=== PATIENT | male | born 1990 | race Caucasian/White ===

== ENCOUNTER 2021-01-17 08:07 | Emergency (ER) | payer OTHER, SELFPAY ==
--- NOTE | 2021-01-17 08:11 | ED.ABDPAIN ---
HPI - Abdominal Pain General Chief Complaint: Nausea/Vomiting/Diarrhea Stated Complaint: nausea and diarrhea Time Seen by Provider: 01/17/21 08:11 Source: patient and RN notes reviewed History of Present Illness HPI narrative: Patient is a 30-year-old male who presents the urgent care with complaints of diffuse abdominal pains, nausea, vomiting and diarrhea. Patient states that it started on Friday after he went to [facility] and ate a steak. Patient states that his entire family were having issues of nausea and vomiting which resolved within a few hours of going out to eat. Patient states he has been unable to keep anything down since Friday. Patient states he attempted to take Tylenol once which came right back up. Patient states that he has had 6-7 bouts of diarrhea this morning and one episode of vomiting. Denies of any blood in the stool or vomit. Denies of any known fevers. Patient appears to be uncomfortable but no acute distress noted. Patient aware of the plan of care. Some parts of this dictation were generated by voice recognition software and may contain typographical and/or grammatical inaccuracies. Related Data Allergies Allergy/AdvReac Type Severity Reaction Status Date / Time cefaclor Allergy Intermediate Hives Verified 01/17/21 08:21 Cephalosporins Allergy Intermediate RASH Verified 04/11/20 10:21 sulfamethizole Allergy Unknown Unknown Verified 01/17/21 08:21 Review of Systems Review of Systems: Narrative: CONSTITUTIONAL: Reports of chills and sweats EYES: Denies visual changes, redness, or discharge. ENT: Denies rhinorrhea, congestion, sore throat, or otalgia. CARDIOVASCULAR: Denies chest pain, palpitations, or edema. RESPIRATORY: Denies cough or dyspnea. GASTROINTESTINAL: Reports of abdominal discomfort, nausea, vomiting, diarrhea GENITOURINARY: Denies dysuria or hematuria. SKIN: Denies rash or itching. MUSCULOSKELETAL: Denies back pain, joint pain, or myalgia. NEUROLOGIC: Denies headache, numbness, or weakness. All other systems reviewed are negative, except as documented in HPI. [facility] Family History Family History Father Hypertension Mother Hypertension Grandparent Family history of coronary artery disease Social History Social History Smoking status: Never smoker Alcohol intake: current Comments At the time of my signature, I reviewed and agree with the nursing past medical, surgical, social, and family history. There is no relevant family history pertinent to the patient complaint. Exam Narrative: Exam Narrative: GENERAL: This is a well-nourished, well-developed patient, in no apparent distress. HEAD: normocephalic, atraumatic. EYES: PERRL. Sclera clear/white. Vision is grossly intact. EARS: External ears normal NOSE: External nose normal with no obvious nasal discharge, nares without redness, no rhinorrhea. THROAT: Mucous membranes dry, posterior pharynx clear. NECK: Neck supple CARDIOVASCULAR: Regular rate and rhythm without murmurs, gallops, or rubs. RESPIRATORY: Clear to auscultation. Breath sounds equal bilaterally. No wheezes, rales, or rhonchi. GASTROINTESTINAL: Abdomen soft, left lower quadrant tenderness and epigastric tenderness, nondistended. Bowel sounds are active. guarding. SKIN: warm, intact with no suspicious lesions or rash, good texture and turgor. NEURO: awake, alert, and oriented to person, place and time. There were no obvious focal neurologic abnormalities. EXTREMITIES: No clubbing, cyanosis, or edema. Course Vital Signs Vital signs: Vital Signs Temperature 98.2 F 01/17/21 08:13 Pulse Rate 108 H 01/17/21 08:13 Respiratory Rate 20 01/17/21 08:13 Blood Pressure 139/87 01/17/21 08:13 Pulse Oximetry 100 01/17/21 08:13 Temperature 98.2 F 01/17/21 08:13 Pulse Rate 108 H 01/17/21 08:13 Respiratory Rate 20 07
[2021-01-17 08:13] VITALS: BP 139/87; PULSE 108; RESP 20; TEMP 36.8; O2SAT 100
== END 2021-01-17 08:39 | disposition short-term general hospital (02) ==
PROVIDERS: Emergency Provider Nurse Practitioner Family
DX: R11.2 Nausea with vomiting, unspecified (principal); R10.13 Epigastric pain; R10.31 Right lower quadrant pain; K21.9 Gastro-esophageal reflux disease without esophagitis
CPT/HCPCS: 99212; G0463

== ENCOUNTER → 2022-03-14 15:09 | Outpatient (CLI) | payer BC, SELFPAY ==
--- NOTE | ~2022-03-14 | US_ITS ---
EXAMINATION: US abdomen limited DATE: 03/14/2022 15:38 INDICATION: Left upper quadrant pain TECHNIQUE: Multiple grayscale and Doppler ultrasound images of the left upper quadrant were obtained. COMPARISON: None available FINDINGS: The mildly enlarged spleen measures 14 cm. The left kidney is normal measuring 12.2 x 5.9 x 5.7 cm. There is no hydronephrosis. IMPRESSION: 1. Mild splenomegaly. Reviewed, dictated and finalized at location B. IMPRESSION: 1. Mild splenomegaly.
== END ==
PROVIDERS: PCP Family Medicine; Visit Provider Nurse Practitioner
DX: R10.12 Left upper quadrant pain (principal); R16.1 Splenomegaly, not elsewhere classified
CPT/HCPCS: 76705

== ENCOUNTER 2022-04-03 07:29 | Outpatient (CLI) | payer BC, SELFPAY ==
--- NOTE | ~2022-04-03 | CT_ITS ---
EXAMINATION: CT abdomen pelvis w con INDICATION: Left upper quadrant pain, history of ruptured spleen TECHNIQUE: Computed tomographic images of the abdomen and pelvis were obtained after the administrati on of 100 cc of Omnipaque 350 intravenous contrast. The dose-length product (DLP) was 950.10 mGy-cm. Automated exposure control and iterative reconstruction technique were employed. COMPARISON: None available FINDINGS: The lung bases are clear. The heart size is normal. Mild splenomegaly is noted. The liver, pancreas, gallbladder, and adrenal glands are normal. The kidneys are unremarkable. No pathologically enlarged abdominal or pelvic lymph nodes are identified. There is no free intraperitoneal gas or manny dence of bowel obstruction. Bone islands are noted in the left pelvis. There is mild lumbar spondylos is. A tiny fat-containing umbilical hernia is noted. There are bilateral inguinal hernias containing fat. IMPRESSION: 1. No CT correlate for the patient's symptoms. Mild splenomegaly. Reviewed, dictated and finalized at location A.
== END 2022-04-03 07:30 | disposition home or self-care (01) ==
PROVIDERS: PCP Family Medicine; Visit Provider Nurse Practitioner
DX: R10.12 Left upper quadrant pain (principal); R16.1 Splenomegaly, not elsewhere classified; K42.9 Umbilical hernia without obstruction or gangrene; K40.90 Unilateral inguinal hernia, without obstruction or gangrene, not specified as recurrent; M47.816 Spondylosis without myelopathy or radiculopathy, lumbar region
CPT/HCPCS: 74177; Q9967

== ENCOUNTER 2022-05-12 15:45 | Emergency (ER) | payer BC, SELFPAY ==
[2022-05-12 16:00] VITALS: BP 143/78; PULSE 73; RESP 18; TEMP 36.9; O2SAT 98
--- NOTE | 2022-05-12 16:42 | ED.GENADULT ---
HPI - General Adult General Chief complaint: Eye Problems Stated complaint: Right Eye Problem Source: patient Mode of arrival: ambulatory Limitations: no limitations History of Present Illness HPI narrative: Patient presents for evaluation of redness and tearing to the right eye for the last 2 days. He does not wear contacts or glasses. He states he will sleep with his symptoms. He is wondering if perhaps something from his pillow entered his right eye. 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 He denies associated pain or pruritus. He reports the skin surrounding his eye to be irritated after placing some eye drops in his eye that contain belladonna. No visual impairments. No one around him has had pink eye . No recent sick contacts to his knowledge. No additional complaints or concerns. Related Data Allergies Allergy/AdvReac Type Severity Reaction Status Date / Time cefaclor Allergy Intermediate Hives Verified 05/12/22 16:11 Cephalosporins Allergy Intermediate RASH Verified 05/12/22 16:11 sulfamethizole Allergy Unknown Unknown Verified 05/12/22 16:11 Review of Systems Review of Systems: CONSTITUTIONAL: Denies fever, chills, or sweats. EYES: Reports redness and tearing from the right eye. Denies pain, pruritis and visual disturbance. ENT: Denies rhinorrhea, congestion, sore throat, or otalgia. CARDIOVASCULAR: Denies chest pain, palpitations, or edema. RESPIRATORY: Denies cough or dyspnea. GASTROINTESTINAL: Denies abdominal pain, nausea, vomiting, or diarrhea. GENITOURINARY: Denies dysuria or hematuria. SKIN: Denies rash or itching. MUSCULOSKELETAL: Denies back pain, joint pain, or myalgia. NEUROLOGIC: Denies headache, numbness, dizziness, or weakness. PSYCHIATRIC: Denies anxiety or depression. [facility] Past Medical History Medical History (Updated 05/12/22 @ 17:03 by RUTHY Beatty, FRANCHESCA) Heart disease History of traumatic rupture of spleen LUQ abdominal pain Obesity (BMI 30-39.9) Spleen enlarged Surgical History Surgical History No pertinent past surgical history Family History Family History Father Hypertension Mother Hypertension Grandparent Family history of coronary artery disease Social History Social History (Updated 05/12/22 @ 17:03 by Jamaal Corbett [facility]) Smoking status: Never smoker Alcohol intake: former Drinks per week: 5 Substance use: never Substance use type: does not use Living arrangements: with family Gender identity (if verbalized by the patient): Male Sexual Orientation (if Verbalized by the Patient): Straight or Heterosexual Spiritual care concerns: No Exam Narrative: GENERAL: Well-appearing, well-nourished, and in no acute distress. HEAD: Normocephalic, atraumatic. EYES: PERRLA and EOMI. Right conjunctival injection with associated tearing. No dye uptake when evaluated with fluorescein and Wood's lamp evaluation ENT: Nares clear, no rhinorrhea or epistaxis. Mucous membranes moist. Oropharynx without tonsillar hypertrophy exudate or other lesions. Bilateral TMs pearly gregory nonbulging NECK: Supple. No adenopathy or masses. No carotid bruits or JVD CHEST: Clear to auscultation. No respiratory distress. No wheezes rales or rhonchi HEART: Regular rate and rhythm. No murmur heard. Normal peripheral pulses. ABDOMEN: Soft, nontender, nondistended, normal active bowel sounds. EXTREMITIES: Normal range of motion. No edema. SKIN: Warm, dry, no rash. NEURO: No focal deficits. Alert and oriented x3. PSYCH: Normal mood and affect. Course Course Emergency Course: This is a 31-year-old male who presented for evaluation of redness and tearing from the right eye. I do not appreciate any corneal abrasion on exam or foreign body. Recommended he discontinue
== END 2022-05-12 17:05 | disposition home or self-care (01) ==
PROVIDERS: Emergency Provider Nurse Practitioner; PCP Family Medicine
DX: H10.9 Unspecified conjunctivitis (principal)
CPT/HCPCS: 99213; A9270; G0463

== ENCOUNTER 2022-07-12 18:25 | Emergency (ER) | payer BC, SELFPAY ==
[2022-07-12 18:30] VITALS: BP 138/72; PULSE 68; RESP 18; TEMP 36.9; O2SAT 98
[2022-07-12 18:52] VITALS: BP 138/72; PULSE 68; RESP 18; TEMP 36.9; O2SAT 98
--- NOTE | 2022-07-12 19:00 | ED.EYEPROB ---
HPI - Eye Problem General Chief complaint: Eye Problems Stated complaint: FB right eye Time Seen by Provider: 07/12/22 18:35 Source: patient Mode of arrival: ambulatory Limitations: no limitations History of Present Illness HPI Narrative: Jamaal is a 31-year-old male patient presented to the clinic today with possible foreign body in the right eye. He reports that his eye has been watering since yesterday. Has tried to irrigate his eye without success. 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 States that could be plastic or metal in his eye. Related Data Allergies Allergy/AdvReac Type Severity Reaction Status Date / Time No Known Allergies Allergy Verified 07/12/22 18:59 Review of Systems Review of Systems: Pertinent positives per HPI. Patient denies any fever, chills, rash, headache, visual changes, dizziness, cough, runny nose, sore throat, shortness of breath, chest pain, palpitations, nausea, vomiting, diarrhea, constipation, abdominal pain, or any urinary issues. PMFSH Past Medical History Medical History Heart disease History of traumatic rupture of spleen LUQ abdominal pain Obesity (BMI 30-39.9) Spleen enlarged Surgical History Surgical History No pertinent past surgical history Family History Family History Father Hypertension Mother Hypertension Grandparent Family history of coronary artery disease Social History Social History Smoking status: Never smoker Alcohol intake: former Drinks per week: 5 Substance use: never Substance use type: does not use Lack of Transportation: No Lack of Food: Never True Current Housing: I Have Housing Concerned About Future Housing: No Difficulty Paying Gas/Electric Bills: No Difficulty Paying for Meds: No Currently Unemployed: No Education: Associate Degree Difficulty w/ Childcare or Family Care: No Gender identity (if verbalized by the patient): Male Sexual Orientation (if Verbalized by the Patient): Straight or Heterosexual Spiritual care concerns: No Comments At the time of my signature, I reviewed and agree with the nursing past medical, surgical, social, and family history. There is no relevant family history pertinent to the patient complaint. Exam Narrative: General: Well-developed, well nourished, in no apparent distress Head: Normocephalic, atraumatic Eyes: Pupils equally round and reactive to light bilaterally, EOM intact, left sclera and conjunctive clear, right sclera injected, conjuncitva clear, clear watery discharge from right eye, FB in the right eye over the iris at approximately 7 o'clock, lids normal Ears: TMs intact and clear, ear canals clear, no drainage, grossly hearing normal. Nose: Nares patent, no discharge, no inflammation, no sinus tenderness. Mouth: Oropharynx without lesions or masses, good dentition, MMM. Neck: Supple, trachea midline, no enlargement of anterior or posterior cervical nodes, no thyroid masses or goiter palpable. Cardio: Regular rate and rhythm, s1 and s2 normal, no murmur appreciated. Resp: Clear to auscultation bilaterally anteriorly and posteriorly, no rhonchi, rales, wheezing or rubs Course Course Emergency Course: Portions of this record may have been created with voice recognition software. Level of Care: Express Care Visit Vital Signs Vital signs: Vital Signs Temperature 36.9 C 07/12/22 18:30 Pulse Rate 68 07/12/22 18:30 Respiratory Rate 18 07/12/22 18:30 Blood Pressure 138/72 07/12/22 18:30 Pulse Oximetry 98 07/12/22 18:30 Oxygen Delivery Room Air 07/12/22 18:30 Temperature 36.9 C 07/12/22 18:52 Pulse Rate 68 07/12/22 18:52 Respiratory Rate 18 07/12/22 18:52 Blood P
== END 2022-07-12 19:05 | disposition home or self-care (01) ==
PROVIDERS: Emergency Provider Nurse Practitioner Family
DX: T15.01XA Foreign body in cornea, right eye, initial encounter (principal); X58.XXXA Exposure to other specified factors, initial encounter; I51.9 Heart disease, unspecified; E66.9 Obesity, unspecified; Z68.34 Body mass index [BMI] 34.0-34.9, adult
CPT/HCPCS: 65220; 99213; A9270; G0463

== ENCOUNTER 2022-07-13 11:32 | Emergency (ER) | payer BC, SELFPAY ==
[2022-07-13 11:41] VITALS: BP 137/85; PULSE 84; RESP 16; TEMP 36.2; O2SAT 100
--- NOTE | 2022-07-13 12:28 | ED.EYEPROB ---
HPI - Eye Problem General Chief complaint: Eye Problems Stated complaint: eye debris Time Seen by Provider: 07/13/22 12:00 History of Present Illness HPI Narrative: Patient is a 31-year-old male presenting with a right eye problem. 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 States that he thinks that he got a piece of metal in his right eye either at work or while working on a car. He went to urgent care yesterday and they were unable to remove the foreign body and advised to follow-up with ophthalmology. Today they called ophthalmology and they were unable to get an appointment. States that he continues to have pain in his right eye. He does not wear contacts or glasses. Denies vision changes. Denies further complaints. Related Data Allergies Allergy/AdvReac Type Severity Reaction Status Date / Time No Known Allergies Allergy Verified 07/12/22 18:59 Review of Systems Review of Systems: All systems reviewed & are unremarkable except as noted in HPI and below PMFSH Past Medical History Medical History Heart disease History of traumatic rupture of spleen LUQ abdominal pain Obesity (BMI 30-39.9) Spleen enlarged Surgical History Surgical History No pertinent past surgical history Family History Family History Father Hypertension Mother Hypertension Grandparent Family history of coronary artery disease Social History Social History Smoking status: Never smoker Alcohol intake: former Drinks per week: 5 Substance use: never Substance use type: does not use Lack of Transportation: No Lack of Food: Never True Current Housing: I Have Housing Concerned About Future Housing: No Difficulty Paying Gas/Electric Bills: No Difficulty Paying for Meds: No Currently Unemployed: No Education: Associate Degree Difficulty w/ Childcare or Family Care: No Gender identity (if verbalized by the patient): Male Sexual Orientation (if Verbalized by the Patient): Straight or Heterosexual Spiritual care concerns: No Exam Narrative: GENERAL: Well-appearing, well-nourished, and in no acute distress. HEAD: Normocephalic, atraumatic. EYES: PERRLA and EOMI. small round foreign body at approximately 7:00 over the right iris ENT: Nares clear, no rhinorrhea or epistaxis. Mucous membranes moist. NECK: Supple. CHEST: No respiratory distress. HEART: Regular rate and rhythm. ABDOMEN: Soft, nondistended, EXTREMITIES: Normal range of motion. No edema. SKIN: Warm, dry, no rash. NEURO: No focal deficits. Alert and oriented x3. PSYCH: Normal mood and affect. Course Vital Signs Vital signs: Vital Signs Temperature 97.2 F L 07/13/22 11:41 Pulse Rate 84 07/13/22 11:41 Respiratory Rate 16 07/13/22 11:41 Blood Pressure 137/85 07/13/22 11:41 Pulse Oximetry 100 07/13/22 11:41 Temperature 97.2 F L 07/13/22 11:41 Pulse Rate 84 07/13/22 11:41 Respiratory Rate 16 07/13/22 11:41 Blood Pressure 137/85 07/13/22 11:41 Pulse Oximetry 100 07/13/22 11:41 Procedures Foreign Body Removal Foreign Body #1: Foreign Body Removal Date: 07/13/22 Foreign Body Removal Time: 12:44 Site: right and other (right eye) Description of foreign body: other (piece of metal lodged in cornea) Technique: manual removal Confirmed by:: direct visualization Complications: none Foreign Body Removal Narrative: small metal foreign body removed from right cornea using 21g beveled needle, removed without complication, small rust ring remains at site MDM - Eye Problem MDM Narrative Medical decision making narrative: Patient is a 31-year-old male presenting with a foreign body in his right
== END 2022-07-13 13:25 | disposition home or self-care (01) ==
PROVIDERS: Emergency Provider Emergency Medicine
DX: T15.01XA Foreign body in cornea, right eye, initial encounter (principal); I51.9 Heart disease, unspecified; E66.9 Obesity, unspecified; Z68.35 Body mass index [BMI] 35.0-35.9, adult
CPT/HCPCS: 65220; 99283; A9270